=== PATIENT | female | born 1945 | race Caucasian/White ===

== ENCOUNTER → 2018-12-10 | Outpatient (CLI) | payer MEDICARE, OTHER | LOC: M.RAD 10:40 | DX: J98.4 Other disorders of lung (principal); Z88.8 Allergy status to other drugs, medicaments and biological substances; Z88.2 Allergy status to sulfonamides ==

== ENCOUNTER 2020-02-07 11:39 | Observation (INO) | payer MEDICARE, OTHER ==
[~2020-02-07] VITALS: Ht 162.6 cm; Wt 85.3 kg
[2020-02-07 11:46] VITALS: BP 199/90
[2020-02-07] MEDS ORDERED: CARDIZEM SR 60M60 MG PO (11:49)
[2020-02-07 12:09] LABS: ABSOLUTE BASOPHILS 0.1 thou/uL (0.0-0.2); ABSOLUTE EOSINOPHILS 0.4 thou/uL (0.0-0.7); ABSOLUTE LYMPHOCYTES 1.9 thou/uL (0.8-5.3); ABSOLUTE MONOCYTES 0.8 thou/uL (0.0-1.2); ABSOLUTE NEUTROPHILS 5.2 thou/uL (1.6-8.1); BASOPHILS 0.9 %; EOSINOPHILS 4.4 %; HEMATOCRIT 42.3 % (37.0-47.0); HEMOGLOBIN 14.7 gm/dL (12.0-15.0); LYMPHOCYTES 23.2 %; MCH 32.6 pg (26.0-34.0); MCHC 34.8 g/dL (28.0-37.0); MCV 93.8 fL (80.0-100.0); MONOCYTES 9.4 %; MPV 9.8 fl. (7.2-11.1); NUCLEATED RBCS 0 /100WBC; PLATELET COUNT* 221 thou/uL (150-400); POLYS 62.1 %; RBC 4.51 mil/uL (4.20-5.00); RDW-CV 13.4 % (10.5-14.5); WBC 8.4 thou/uL (4.0-11.0)
[2020-02-07 12:18] LABS: APTT 27.5 Seconds (25.0-31.3); CALCIUM 9.4 mg/dL (8.5-10.1); CREATININE 0.8 mg/dL (0.6-1.3); POTASSIUM 3.8 mmol/L (3.5-5.1); PROTIME 10.5 Seconds (9.20-11.50)
[2020-02-07 12:28] LABS: MAGNESIUM 2.1 mg/dL (1.8-2.4); TOTAL BILIRUBIN 0.4 mg/dL (<0.1-1.0); TOTAL PROTEIN 7.8 g/dL (6.4-8.2)
[2020-02-07 15:40] VITALS: BP 156/61
[2020-02-07] MEDS ORDERED: MAGNESIUM OXID200 MG PO (16:44)
[2020-02-07] MEDS ORDERED: CALCIUM CITRAT1 EA17 PO (16:45)
[2020-02-07] MEDS ORDERED: CO Q-10100 M1 PO (16:46)
[2020-02-07] MEDS ORDERED: VITAMIN B COMP1 EACH PO (16:46)
--- NOTE | 2020-02-07 19:00 | NUR ---
ASSUMED PT CARE FROM ER AROUND 1615. ASSESSMENT COMPLETED CHARTED. ABLE TO MAKE NEEDS KNOWN. UP WITH SBA. NO C/O PAIN OR DISCOMFORT AT TIME OF ASSESSMENT. RESTING IN BED MOST OF THE SHIFT. WILL CONTINUE TO MONITOR.
[2020-02-07 20:00] VITALS: BP 171/74
[2020-02-08] VITALS: BP 181/89
[2020-02-08 04:18] VITALS: BP 150/63
[2020-02-08 08:00] VITALS: BP 143/76
[2020-02-08 11:51] VITALS: BP 155/73
[2020-02-08 15:00] VITALS: BP 155/73
--- NOTE | 2020-02-08 15:37 | EKG ---
[place] [address] ELECTROCARDIOGRAM REPORT Name: CARRINGTON NARAYAN Room: [address] M.R.#: [id number] Admission: 02/07/20 Attend Phys: [place] Discharge: Date of : 43 Date of Service: 02/07/20 1144 Report #: [id number] THIS REPORT FOR: //name// [facility] ED Test Date: 2020-02-07 Test Time: 11:44:37 Pat Name: CARRINGTON NARAYAN Department: Room: [facility] Gender: F Clinical Professor: DS : 1945 Requested By: Brandon Borjas Order Number: [id number] MD: Nhan Casper Measurements Intervals Eagle Rate: 97 P: 57 GA: 181 QRS: -21 QRSD: 96 T: 39 QT: 369 QTc: 469 Interpretive Statements Sinus rhythm Borderline left axis deviation No previous ECG available for comparison Electronically Signed On 02-08-2020 15:37:04 CDT by Nhan Casper [email or web address] <ELECTRONICALLY SIGNED> By: Nhan Casper MD, [facility] 02/08/20 1537 1144 1144 Nhan Casper MD, [facility] /EPI
[2020-02-08 16:02] VITALS: BP 135/69
--- NOTE | 2020-02-08 16:35 | CARDNUC ---
[place] [address] CARDIAC NUCLEAR IMAGING REPORT Name: CARRINGTON NARAYAN Room: [address] M.R.#: [id number] Admission: 02/07/20 Attend Phys: [place] Discharge: Date of : 43 Date of Service: 02/08/20 1635 Report #: [id number] THIS REPORT FOR: cc: Valdemar Mccarthy MD, David L. MD Liston, Michael J. MD [facility] ~ APPROVED REPORT Imaging Protocol: Stress Tc-99mm Only Study performed: 02/08/2020 09:28:00 Indication: Chest pain Patient Location: In-Patient Stress Tech: Vidhya He Stress Nurse: Bonita Salcedo RN NM Tech:JANAE Muller Ht: 5 ft 4 in Wt: 188 lbs BSA: 1.91 m2 BMI: 32.26 Medical History Medical History: Angina, Atrial Fibrillation, Atrial Flutter, Systolic murmur, Right Carotid Bruit, HTN, HLD. Medications: Cardizem, Amlodipine, ASA 325 Mg. Allergies: Sulfonamides, Benzocaine. Cardiac Risk Factors: Age, FHX of CAD, HTN, Hyperlipidemia, PAFib/Aflutter, Systolic murmur. Previous Cardiac Procedures: None Pretest Chest Pain Characteristics: No chest pain Exercise History: Indeterminate Physical Disabilities: Generalized weakness, instability. Meds Held (24 hrs): None Pharmacologic Stress Pharmacologic stress test was performed by injecting Regadenoson 0.4 mg IV push over 10-15 seconds immediately followed by the intravenous injection of 32.0 mCi of Tc-99m Sestamibi. Time of stress injection: 5 Date: 02/08/2020 Administration Route: IV Administration Site: Right AC Gated Stress SPECT was performed 40 minutes after stress injection. The images were gated to evaluate regional wall motion and calculate left [place] [address] CARDIAC NUCLEAR IMAGING REPORT Name: CARRINGTON NARAYAN Room: [address]#: [id number] Admission: 02/07/20 Attend Phys: [place] Discharge: Date of : 43 Date of Service: 02/08/20 1635 Report #: [id number] Prone imaging was performed. Stress Test Details Stress Test: Pharmacologic stress was paired with low level exercise. HR Max Heart Rate (APMHR): 145 bpm Resting HR: 75 bpm Target HR (85% APMHR): 123 bpm Max HR Achieved: 142 bpm % of APMHR: 97 Recovery HR: 96 bpm BP Resting BP: 156/86 mmHg Max BP: 200/56 mmHg Recovery BP: 131/72 mmHg ECG Resting ECG: Sinus Rhythm Stress ECG: Sinus Tachycardia ST Change: None Arrhythmia: None Recovery ECG: Sinus Rhythm Recovery ST Change: None Recovery Arrhythmia: None Clinical Reason for Termination: Completed protocol Stress Symptoms: Dyspnea, Lightheaded Exercise duration: 7 min 02 sec Exercise capacity: 5.68 METs The patient tolerated standard Cisco protocol exercise without significant cardiac complaint. Nurse Comments A 74 year old female inpatient presented for a Cisco Protocol Nuclear Stress Test r/t chest pain radiating to back. Treadmill tolerated to end of stage 1 but patient was unable to keep up on stage 2. Test changed at that time to a walking Lexiscan with slower speed and lower incline with continued artifact. Protocol completed. Recovery extended to accomodate continued tachycardia. Patient was escorted by staff via wheelchair to Nuclear Medicine for imaging. Patient was stable and stated she felt good at that time. Stress ECG Conclusion The baseline twelve-lead EKG shows sinus [place] [address] CARDIAC NUCLEAR IMAGING REPORT Name: CARRINGTON NARAYAN Room: [address]#: [id number] Admission: 02/07/20 Attend Phys: [place] Discharge: Date of : 43 Date of Service: 02/08/20 1635 Report #: [id number] segment or T wave abnormality. EKGs obtained during and post exercise show sinus rhythm and sinus tachycardia with no significant ST segment or T wave abnormality when compared to baseline. There were no significant stress-induced arrhythmias. Study Data Post stress, the left ventricular ejection was 72%.. Perfusion Post-rest perfusion imaging shows no defect to suggest infarct or ischemia. Wall Motion Normal left ventricular wall motion. Nuclear Conclusion ECG Findings: negative for ischemia Clinical Findings: negative for ischemia Nuclear Findings: negative for ischemia Exercise Capacity: normal Left Ventricular Function: normal Risk Study: low Perfusion images show no defect to suggest infarct or ischemia. Left ventricular systolic function is normal on gated studies. This is a low risk study. <Conclusion> The baseline twelve-lead EKG shows sinus rhythm without significant ST segment or T wave abnormality. EKGs obtained during and post exercise show sinus rhythm and sinus tachycardia with no significant ST segment or T wave abnormality when compared to baseline. There were no significant stress-induced arrhythmias. <ELECTRONICALLY SIGNED> By: Edgar Zarate MD, FACC 02/08/20 1635 1635 1635 Edgar Zarate MD, FACC /INF
--- NOTE | 2020-02-08 16:38 | 2DMMODE ---
[place] [address] 2 D/M-MODE ECHOCARDIOGRAM Name: CARRINGTON NARAYAN POLANCO Room: [address] MShanita#: [id number] Admission: 02/07/20 Attend Phys: [place] Discharge: Date of : 43 Date of Service: 02/08/20 1637 Report #: [id number] THIS REPORT FOR: cc: Valdemar Mccarthy MD, David L. MD Liston, Michael J. MD [facility] ~ APPROVED REPORT Study performed: 02/08/2020 15:41:45 EXAM: Comprehensive 2D, Doppler, and color-flow Echocardiogram Patient Location: In-Patient Room #: [facility] Status: routine BSA: 1.91 HR: 79 bpm BP: 143/76 mmHg Rhythm: NSR Other Information Study Quality: Good Indications Murmur Chest Pain 2D Dimensions IVSd: 8.67 (7-11mm) LVOT Diam: 19.84 (18-24mm) LVDd: 54.72 mm PWd: 8.67 (7-11mm) Ascending Ao: 26.74 (22-36mm) LVDs: 33.47 (25-40mm) Aortic Root: 29.21 mm Volumes Left Atrial Volume (Systole) LA ESV Index: 28.70 mL/m2 Aortic Valve AoV Peak Jaspal.: 1.67 m/s AO Peak Gr.: 11.13 mmHg LVOT Max P.99 mmHg AO Mean Gr.: 6.08 mmHg LVOT Mean P.85 mmHg LVOT Max V: 1.00 m/s AO V2 VTI: 31.51 cm LVOT Mean V: 0.61 m/s PHI (VTI): 2.23 cm2 LVOT V1 VTI: 22.74 [place] [address] 2 D/M-MODE ECHOCARDIOGRAM Name: CARRINGTON NARAYAN Room: [address]R.#: [id number] Admission: 02/07/20 Attend Phys: [place] Discharge: Date of : 43 Date of Service: 02/08/20 1637 Report #: [id number] Mitral Valve E/A Ratio: 0.84 MV Decel. Time: 225.84 ms MV E Max Jaspal.: 0.90 m/s MV PHT: 65.49 ms MVA (PHT): 3.36 cm2 TDI E/Lateral E': 8.18 E/Medial E': 10.00 Medial E' Jaspal.: 0.09 m/s Lateral E' Jaspal.: 0.11 m/s Pulmonary Valve PV Peak Jaspal.: 1.03 m/s PV Peak Gr.: 4.24 mmHg Tricuspid Valve RAP Estimate: 5.00 mmHg TR Peak Gr.: 20.12 mmHg RVSP: 25.00 mmHg PA Pressure: 25.00 mmHg Left Ventricle The left ventricle is normal size. There is normal LV segmental wall motion. There is normal left ventricular wall thickness. Left ventricular systolic function is normal. LVEF is 60-65%. Grade I - abnormal relaxation pattern. Right Ventricle The right ventricle is normal size. The right ventricular systolic function is normal. Atria Left atrium is mildly dilated. The right atrium size is normal. Aortic Valve The aortic valve is normal in structure. No aortic regurgitation is present. There is no aortic valvular stenosis. Mitral Valve The mitral valve is normal in structure. Mild mitral regurgitation. No evidence of mitral valve stenosis. Tricuspid Valve The tricuspid valve is normal in structure. Mild tricuspid regurgitation. [place] [address] 2 D/M-MODE ECHOCARDIOGRAM Name: CARRINGTON NARAYAN Room: [address]#: [id number] Admission: 02/07/20 Attend Phys: [place] Discharge: Date of : 43 Date of Service: 02/08/20 1637 Report #: [id number] Pulmonic Valve The pulmonary valve is normal in structure. There is no pulmonic valvular regurgitation. Great Vessels The aortic root is normal in size. IVC is normal in size and collapses >50% with inspiration. Pericardium There is no pericardial effusion. <Conclusion> The left ventricle is normal size. There is normal left ventricular wall thickness. Left ventricular systolic function is normal. LVEF is 60-65%. Grade I - abnormal relaxation pattern. Left atrium is mildly dilated. Mild mitral regurgitation. Mild tricuspid regurgitation. No pulmonary hypertension. IVC is normal in size and collapses >50% with inspiration. <ELECTRONICALLY SIGNED> By: Edgar Zarate MD, FACC 02/08/20 1637 1637 1637 Edgar Zarate MD, FACC /INF
--- NOTE | 2020-02-08 17:25 | NUR ---
ASSUMED PT CARE AT 0730. ASSESSMENT COMPLETED CHARTED. ABLE TO MAKE NEEDS KNOWN. PT NPO TILL AFTER STRESS TEST TODAY WHICH CAME BACK OK. DISCHARGE APPROVED AND WENT OVER WITH PT. NO C/O PAIN OR DISCOMFORT. UP AD SIMONA IN ROOM. IN ROOM DURING DISCHARGE. PT TOOK ALL BELONGINGS WITH HER AND WENT DOWN TO HER HUSBANDS CAR AROUND 1720. NO COMMENTS, QUESTIONS, OR CONCERNS NOTED.
== END 2020-02-08 17:20 | disposition home or self-care (01) ==
LOC: M.ERS 11:39 → M.TBA-ER 12:53 → M.2W 12:53
PROVIDERS: Emergency Medicine Emergency Medical Services; ADMIT Internal Medicine; ATTEND Internal Medicine
DX: R07.2 Precordial pain (principal); I48.0 Paroxysmal atrial fibrillation; I10 Essential (primary) hypertension; E78.5 Hyperlipidemia, unspecified; R01.1 Cardiac murmur, unspecified; R79.1 Abnormal coagulation profile; M54.9 Dorsalgia, unspecified; M79.603 Pain in arm, unspecified

== ENCOUNTER → 2020-05-23 | Outpatient (CLI) | payer MEDICARE, OTHER ==
[~2020-05-23] MED LIST: CALCIUM CITRAT1 EA17 PO; CARDIZEM SR 60M60 MG PO; CO Q-10100 M1 PO; MAGNESIUM OXID200 MG PO; VITAMIN B COMP1 EACH PO
[2020-05-23 12:12] LABS: ABSOLUTE EOSINOPHILS 0.4 thou/uL (0.0-0.7); ABSOLUTE LYMPHOCYTES 2.1 thou/uL (0.8-5.3); ABSOLUTE MONOCYTES 0.7 thou/uL (0.0-1.2); BASOPHILS 0.2 %; EOSINOPHILS 5.6 %; HEMATOCRIT 41.1 % (37.0-47.0); HEMOGLOBIN 13.9 gm/dL (12.0-15.0); LYMPHOCYTES 29.6 %; MCH 31.7 pg (26.0-34.0); MCHC 33.9 g/dL (28.0-37.0); MCV 93.5 fL (80.0-100.0); MONOCYTES 9.4 %; MPV 9.4 fl. (7.2-11.1); NUCLEATED RBCS 0 /100WBC; PLATELET COUNT* 239 thou/uL (150-400); POLYS 55.2 %; RDW-CV 13.4 % (10.5-14.5); WBC 7.2 thou/uL (4.0-11.0)
[2020-05-23 12:15] LABS: URINE BILIRUBIN NEGATIVE (Negative); URINE BLOOD NEGATIVE (Negative); URINE CLARITY CLEAR; URINE COLOR YELLOW; URINE GLUCOSE-RANDOM NEGATIVE (Negative); URINE KETONES TRACE (Negative); URINE LEUKOCYTES-REFLEX NEGATIVE (Negative); URINE NITRITE-REFLEX NEGATIVE (Negative); URINE PROTEIN NEGATIVE (Negative); URINE SPECIFIC GRAVITY 1.015 (1.005-1.030); URINE UROBILINOGEN 0.2 E.U./dl (0.2-1.0)
[2020-05-23 12:28] LABS: ALBUMIN 3.8 g/dL (3.4-5.0); ALKALINE PHOSPHATASE 84 U/L (46-116); ANION GAP 10 mmol/L (7-16); BUN 14 mg/dL (7-18); CALCIUM 9.4 mg/dL (8.5-10.1); CHLORIDE 101 mmol/L (98-107); CHOLESTEROL 198 mg/dL (<200); CO2 29 mmol/L (21-32); CREATININE 0.7 mg/dL (0.6-1.3); GLUCOSE 93 mg/dL (70-99); HDL CHOLESTEROL 69 mg/dL (>40); LDL CHOLESTEROL 109 mg/dL (<100); POTASSIUM 3.9 mmol/L (3.5-5.1); SGOT 17 U/L (15-37); SGPT 22 U/L (30-65); SODIUM 140 mmol/L (136-145); TC:HDL 2.9 Ratio (Not establshd); TOTAL BILIRUBIN 0.5 mg/dL (<0.1-1.0); TOTAL PROTEIN 7.8 g/dL (6.4-8.2); TRIGLYCERIDE 101 mg/dL (<150); VLDL 20 mg/dL (<40)
[2020-05-23 12:30] LABS: SERUM ASSESSMENT Clear
[2020-05-24 02:06] LABS: GLYCOHEMOGLOBIN (HGB A1C) 5.3 % (4.8-5.6)
== END ==
LOC: M.LAB 11:51
PROVIDERS: ATTEND Internal Medicine
DX: U07.1 COVID-19 (principal); Z12.11 Encounter for screening for malignant neoplasm of colon; I10 Essential (primary) hypertension; E78.2 Mixed hyperlipidemia; Z79.899 Other long term (current) drug therapy